=== PATIENT | female | born 2005 | race Caucasian/White ===

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

== ENCOUNTER 2024-03-19 15:46 | Emergency (ER) | payer SELFPAY ==
[2024-03-19 15:48] VITALS: BP 165/94; PULSE 83; RESP 15; TEMP 36.4; O2SAT 98
[2024-03-19 15:56] VITALS: BP 165/94; PULSE 83; RESP 15; TEMP 36.4; O2SAT 98
--- NOTE | 2024-03-19 16:30 | DI.RAD_ITS ---
Exam(s) XR CHEST 2V PA LATERAL EXAM: XR CHEST 2V PA LATERAL CLINICAL HISTORY: Cough TECHNIQUE: 2D digital imaging was performed of the chest. Two images were obtained. PA and lateral views were obtained. COMPARISON: No exams were available for comparison FINDINGS: MEDIASTINUM: Normal. HEART: Normal. PULMONARY VASCULATURE: Normal. LUNGS: Clear. PLEURAL SPACE: No pleural effusion or pneumothorax. BONE:Within normal limits for the patient's age. OTHER FINDINGS:Normal. IMPRESSION: No acute pulmonary findings. DATA REPOSITORY: RADIATION DOSE DELIVERED:
--- NOTE | 2024-03-19 16:33 | W.ED.GENAD ---
Discharge Plan Disposition Patient Disposition: Home Condition: Stable Discharge Details Clinical Impression: Upper respiratory infection, viral Primary Care Provider: Cesar Amin ED Provider: Lexus Mckeon Home Meds and New Rx's Prescriptions: New benzonatate 100 mg capsule 100 mg PO TID PRN (Reason: cough) Qty: 9 0RF Rx Instructions: Take 1 capsule up to 3 times daily as needed for cough No Action bisacodyl 5 mg tablet,delayed release (DR/EC) 5 mg PO DAILY PRN (Reason: constipation) Qty: 90 3RF cyproheptadine 4 mg tablet See Rx Instructions .ROUTE .COMPLEX Qty: 90 0RF Dose Instruction: TAKE 1 TABLET BY MOUTH 2 TO 3 TIMES DAILY NEEDED FOR ALLERGY SYMPTOMS Rx Instructions: TAKE 1 TABLET BY MOUTH 2 TO 3 TIMES DAILY NEEDED FOR ALLERGY SYMPTOMS docusate sodium [Colace] 100 mg capsule 200 mg PO DAILY Qty: 60 0RF ondansetron HCl 4 mg tablet See Rx Instructions .ROUTE .COMPLEX Qty: 90 3RF Dose Instruction: TAKE 1 TABLET BY MOUTH EVERY 8 HOURS NEEDED FOR NAUSEA OR VOMITING Rx Instructions: TAKE 1 TABLET BY MOUTH EVERY 8 HOURS NEEDED FOR NAUSEA OR VOMITING lamotrigine 25 mg tablet 50 mg PO BID Qty: 360 3RF Rx Instructions: Rx'd by [facility] [place] Psychiatry 06/21/21 - JACKY mometasone 0.1 % cream 1 applic topical BID PRN (Reason: skin irritation) Qty: 45 1RF Rx Instructions: Apply thin layer to itchy, inflamed areas BID as needed Kyleena 17.5 mcg/24 hrs (5 yrs) 19.5 mg intrauterine device 1 device intrauterine ONCE Rx Instructions: as a single dose cholecalciferol (vitamin D3) 25 mcg (1,000 unit) capsule 25 mcg PO DAILY naproxen 500 mg tablet 500 mg PO BID PRN (Reason: pain) Qty: 60 0RF doxycycline hyclate 100 mg tablet 100 mg PO BID Qty: 120 0RF Discharge Instructions Instructions: Viral Upper Respiratory Infection, Adult (DC) Additional Instructions: No evidence of pneumonia on the x-ray. I do suspect viral URI. Negative for COVID flu RSV. Please take the Tessalon Perles as directed for cough. You may also take [id number] cough suppressant. Also try honey and Vicks VapoRub. Using albuterol inhaler 1 or 2 puffs every 4-6 hours as needed for shortness of breath. This will help to open up your airways. Follow up with primary care provider in 3-5 days. Return to ED sooner if any worsening or concerns. Please take Tylenol or Ibuprofen with food every 4-6 hours as needed for pain and swelling. Referrals: Cesar Amin DO [Primary Care Provider] - 5 days Discharge Data Discharge Date/Time-TO BE ENTERED AT DEPARTURE: 03/19/24 17:59 HPI General Mode of arrival: ambulatory. Date/Time Provider Initiated Documentation: 03/19/24 15:49. Limitations to Documentation: no limitations. Information obtained by: patient, RN notes reviewed and old records reviewed. HPI Narrative: 19-year-old female presents to the ER with chief complaint of stuffy nose and cough she has been ongoing for the last 3 days. She reports that she was at work and coughed so hard she thought she was in a pass out. She denies any history of asthma however that is listed on her past medical history. She does have a history of obesity, GERD ADHD and mood disorder. She reports that she has not been taking any medications at home for this. Related Data Home Medications ?Medication ?Instructions ?Recorded ?Confirmed levonorgestrel 17.5 mcg/24 hr (up 1 device intrauterine ONCE 03/22/20 03/19/24 to 5 yrs) 19.5mg intrauterine device (Kyleena) mometasone 0.1 % topical cream 1 applic topical BID PRN skin 06/04/20 03/19/24 irritation #45 grams bisacodyl 5 mg tablet,delayed 5 mg PO DAILY PRN constipation #90 09/05/22 03/19/24 release tabs cyproheptadine 4 mg tablet See Rx Instructions .Route 09/05/22 03/19/24 .COMPLEX #90 tabs docusate sodium 100 mg capsule 200 mg (2 x 100 mg) PO DAILY #60 09/05/22 03/19/24 (Colace) caps ondansetron HCl 4 mg tablet See Rx Instructions .Route 09/05/22 03/19/24 .COMPLEX #90 tabs cholecalciferol (vitamin D3) 25 25 mcg PO DAILY 11/14/22 03/19/24 mcg (1,000 unit) capsule naproxen 500 mg tablet 500 mg PO BID PRN pain #60 tabs 11/14/22 03/19/24 lamotrigine 25 mg tablet 50 mg (2 x 25 mg) PO BID #360 tabs 03/19/23 03/19/24 doxycycline hyclate 100 mg tablet 100 mg PO BID #120 tabs 05/21/23 03/19/24 benzonatate 100 mg capsule 100 mg PO TID PRN cough #9 caps 03/19/24 Previous Rx's ?Medication ?Instructions ?Recorded mometasone 0.1 % topical cream 1 applic topical BID PRN skin 06/04/20 irritation #45 grams bisacodyl 5 mg tablet,delayed 5 mg PO DAILY PRN constipation #90 09/05/22 release tabs cyproheptadine 4 mg tablet See Rx Instructions .Route 09/05/22 .COMPLEX #90 tabs docusate sodium 100 mg capsule 200 mg (2 x 100 mg) PO DAILY #60 09/05/22 (Colace) caps ondansetron HCl 4 mg tablet See Rx Instructions .Route 09/05/22 .COMPLEX #90 tabs naproxen 500 mg tablet 500 mg PO BID PRN pain #60 tabs 11/14/22 lamotrigine 25 mg tablet 50 mg (2 x 25 mg) PO BID #360 tabs 03/19/23 doxycycline hyclate 100 mg tablet 100 mg PO BID #120 tabs 05/21/23 benzonatate 100 mg capsule 100 mg PO TID PRN cough #9 caps 03/19/24 Allergies Allergy/AdvReac Type Severity Reaction Status Date / Time Sulfa (Sulfonamide Allergy Rash, Verified 03/19/24 15:57 Antibiotics) Erythema General Stated Complaint: RespSymp DENTON: 3 Review of Systems All systems reviewed & are unremarkable except as noted in HPI and below Cardiovascular Cardiovascular: Reports dyspnea Respiratory Respiratory: Reports cough and Reports dyspnea Exam Narrative Exam Narrative: Constitutional: Alert and oriented x3. Appears stated age. Normal body habitus. Head: Normocephalic, no trauma. Eyes: Pupils PERRL, Red reflex noted, EOM's intact. Eyelids symmetrical without lesions, discharge, or swelling. ENT: Bilateral TM's WNL, External ear normal to inspection, no mastoid TTP, swelling, or erythema, Nasal turbinates WNL, no nasal discharge. Normal dentition, Posterior pharynx WNL, no exudate. Chest: RRR, Normal S1, S2, distal pulses intact. Resp: Lungs clear to auscultation bilaterally, no wheezes, rales, or rhonchi. Abdomen: Soft, non-distended, Normoactive bowel sounds all 4 quads. Musculoskeletal: Normal gait, Moves all 4 extremities without difficulty. Skin: No suspicious rashes or lesions. Capillary refill less than 2 sec. Neurologic: Cranial nerves II-XII intact. Alert and oriented x 3. Motor: No deficits noted. Sensory: Intact bilaterally all 4 extremities. Hematologic/Lymphatic: No ecchymosis, no lymphadenopathy. Course Vital Signs Vital signs: Vital Signs Temperature 36.4 C L 03/19/24 15:48 Pulse 83 03/19/24 15:48 Respiratory Rate 15 03/19/24 15:48 Blood Pressure 165/94 H 03/19/24 15:48 Pulse Oximetry 98 03/19/24 15:48 Temperature 36.4 C L 03/19/24 15:56 Pulse 83 03/19/24 15:56 Respiratory Rate 15 03/19/24 15:56 Respiratory Effort Normal 03/19/24 15:56 Blood Pressure 165/94 H 03/19/24 15:56 Blood Pressure Position Sitting 03/19/24 15:56 Pulse Oximetry 98 03/19/24 15:56 Oxygen Delivery Method Room Air 03/19/24 15:56 Oxygen Flow Rate 0 03/19/24 15:48 Medical Decision Making 19-year-old female presents to the ER with chief complaint of stuffy nose and cough she has been ongoing for the last 3 days. She reports that she was at work and coughed so hard she thought she was in a pass out. She denies any history of asthma however that is listed on her past medical history. She does have a history of obesity, GERD ADHD and mood disorder. She reports that she has not been taking any medications at home for this. Chest x-ray and Fluvid swab ordered. Differential diagnose includes not limited to viral illness, bronchitis, pneumonia, common cold Negative COVID flu RSV, chest x-ray within normal limits. Will give albuterol inhaler to go and Tessalon Perles. Patient discharged in hemodynamically stable condition. This text was generated using Fitlyation system, please disregard any oddities of phrase or misspellings. Lab Data Lab results reviewed: Yes I reviewed the patient's lab results. 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) IUD surveillance (Acute) Kyleena placed 01/2020 Smoking (Acute) Sleep related leg cramps (Acute) Insomnia, unspecified (Chronic) First noted in 2019 @ [facility] [place] Establishing care with new doctor, encounter for (Acute) Rash (Acute) Borderline personality disorder (Acute) Cannabinoid hyperemesis syndrome (Acute) Kidney stone (Chronic) Obstructive sleep apnea (Chronic) + sleep study - without O2 de -sat Initial Dx @ [facility] [place] in 2019 Acanthosis nigricans (Acute) Hyperhidrosis (Acute) Mood disorder (Chronic 01/26/17) has tried Depakote (didn't work well/35#gained) Mirtrazapine Lamictal - didn't work began Lamotragine 09-05-15 eval by [facility] Psych (Dr Galindo) Gastroesophageal reflux disease (Chronic 01/26/17) Enuresis (Chronic 01/26/17) and NOC. enuresis. Seen by urology. 07/2018. Plan: - Refer to sleep medicine. Concern for possible MAGUI which can affect noc. enuresis. - Clean out for constipation. Then daily miralax - Bladder retraining - Minimize nighttime wetting (fluid restriction at night, double voiding before bedtime) -Follow up in 1 month Attention deficit hyperactivity disorder (ADHD), combined type (Chronic 01/26/17) Medical History Asthma Obesity GERD (gastroesophageal reflux disease) ADHD Mood disorder Enuresis Surgical History History of dental surgery All 4 wisdom teeth extracted 2018. Family History Mother Schizophrenia Diabetes Depression Anxiety Father Diabetes Bipolar 1 disorder Diverticulitis of colon Depression Maternal Grandmother Anxiety Social History Smoking/Tobacco Use Status: Current every day Tobacco Type: e-cigarettes Tobacco: How many years used: 3 Quit status: not considering quitting Smoking risk assessment performed?: Yes Alcohol Intake: never Drug use: Daily Substance use type: marijuana Adopted: No Caregiver/Support person: No Foster care: Yes Household members: family Housing: apartment Number of Children: 0 number of grandchildren: 0 Communication Needs: Corrective Lenses Education Level: high school Details: [employer] Do you need help understanding health information?: Rarely current occupation: Unemployed Pets and animals: Yes (1 cat) Pets and animals: cat(s) Sexually active: Yes Do you think of yourself as: bisexual Current gender identity: female What is your relationship status?: never How often do you talk on the phone with friends or family?: three or more times per week How often do you get together with friends or relatives?: once per week Do you belong to any clubs or organized social groups?: no Panel score (0-1 are the most socially isolated patients): 1 What type of physical activity do you participate in: walking Duration: 30-45 minutes/day Frequency: 3-4 times per week Isha/Zoroastrian: Restorationist Seatbelt use: always Helmet use: Yes Helmet use: always Drive intox or ride w/intox 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
[2024-03-19 17:28] LABS: COVID-19 PCR Negative (Negative); Influenza A PCR Negative (Negative); Influenza B PCR Negative (Negative); RSV PCR Negative (Negative); Source NASOPHARYNX
[2024-03-19] MEDS: Albuterol HFA 8 GM 60 PUFF INH IH (17:56)
[2024-03-19] MEDS: Inhaler, Assist Device 1 EACH MC (17:56)
[2024-03-19] MEDS: Benzonatate 100 MG CAP PO ×2 (17:56)
== END 2024-03-19 17:59 | disposition home or self-care (01) ==
PROVIDERS: Emergency Provider Registered Nurse Emergency; PCP Family Medicine
DX: J06.9 Acute upper respiratory infection, unspecified (principal); B97.89 Other viral agents as the cause of diseases classified elsewhere; F17.290 Nicotine dependence, other tobacco product, uncomplicated
CPT/HCPCS: 81025; 87637; 99284; 71046

== ENCOUNTER 2025-02-08 14:42 | Emergency (ER) | payer MEDICAID, SELFPAY ==
[2025-02-08 15:18] VITALS: BP 124/83; PULSE 71; RESP 18; TEMP 37; O2SAT 98
== END 2025-02-08 16:37 | disposition left against medical advice (07) ==
PROVIDERS: PCP Family Medicine
DX: Z53.21 Procedure and treatment not carried out due to patient leaving prior to being seen by health care provider (principal)

== ENCOUNTER 2025-02-08 20:14 | Emergency (ER) | payer SELFPAY ==
[2025-02-08 20:22] VITALS: BP 141/84; PULSE 75; RESP 18; TEMP 37.3; O2SAT 96
--- NOTE | 2025-02-08 20:45 | DI.CT_ITS ---
Exam(s) CT ABDOMEN PELVIS W EXAM: CT ABDOMEN PELVIS W CLINICAL HISTORY: Rectal bleeding TECHNIQUE: Imaging Protocol: Axial computed tomography images with coronal and sagittal reformatted images were created and reviewed. CONTRAST MATERIAL: Intravenous: Omnipaque 350 Contrast volume:100 mL Oral: No COMPARISON: CT CT ABDOMEN PELVIS W from 07/07/[address] ABDOMEN PELVIS W from 11/30/[address] ABDOMEN PELVIS W from 04/28/2021 FINDINGS: ABDOMEN: Lung Bases: No acute abnormality. Liver: Normal density. No measurable mass. Portal, Superior Mesenteric, and Splenic Veins: Unremarkable. Gallbladder and Biliary Tract: No radiodense calculus or dilation. Pancreas: Normal density, no abnormal calcifications or inflammatory process. Spleen: Normal. Adrenals: No masses seen. Kidneys: Normal size, contour and axis. No radiodense stones or obstructive uropathy. There is a tiny hypodensity at the superior pole of the right kidney. It is too small for further characterization but likely reflects a small cyst. No follow-up is recommended. Abdominal Aorta: Abdominal portion non-dilated. Bowel: No obstruction or bowel wall thickening. Appendix is unremarkable. Peritoneal Cavity: No ascites, collection or mesenteric inflammatory response. No free air. Lymph Nodes: Within normal limits. Bones: Within normal limits for the patient's age. Soft Tissues: Unremarkable. PELVIS: Bladder: Urinary bladder is incompletely distended but no gross abnormalities identified. Reproductive Organs: There is an IUD which is in good position. Lymph Nodes: Within normal limits. Bones: Within normal limits for the patient's age. IMPRESSION: 1. No acute abdominal or pelvic process. 2. The preliminary [facility] report was reviewed. RADIATION DOSE DELIVERED: 1,044.89mGy.cm Total DLP DATA REPOSITORY: All CT scans at this facility are submitted to the National Radiology Data Registry (NRDR) Dose Index Registry (DIR) with the [employer] (ACR). RADIATION OPTIMIZATION: All CT scans at this facility use at least one of these dose optimization techniques: automated exposure control; mA and/or kV adjustment per patient size (includes targeted exams where dose is matched to clinical indication); or iterative reconstruction.
[2025-02-08 21:04] LABS: Glucose Negative (Negative)
[2025-02-08 21:13] LABS: C & S Indicated? No; RBC 0-2 HPF (0-2); WBC 0-2 HPF (0-5)
[2025-02-08] MEDS: Acetaminophen 500 MG TAB 1000 MG PO (21:13)
[2025-02-08 21:15] LABS: Abs Immature Grans 0.06 10^3/uL (0.0-0.06); HCT 38.6 % (36.0-46.0); HGB 12.5 g/dL (11.2-15.7); Immature Grans % 0.4 %; MCH 28.2 pg (27.0-33.0); MCHC 32.4 % (32.0-36.0); MCV 87 fL (80-95); MPV 9.9 fL (8.0-11.0); Platelet Count 335 10^3/uL (130-400); RBC 4.44 10^6/uL (3.93-5.22); RDW 12.3 % (11.7-14.6); RDW-SD 38.9 fL; WBC 14.62 10^3/uL (4.4-10.8)
[2025-02-08] MEDS: Normal Saline Flush 10 ML SYR IVP (21:26)
[2025-02-08] MEDS: Omnipaque 350 MG/ML 100 ML BTL IJ (21:26)
[2025-02-08] MEDS: Normal Saline - Diluent 50 ML VIAL IJ (21:26)
[2025-02-08] MEDS: Ondansetron 4 MG/2 ML VIAL IVP (21:28)
[2025-02-08 21:31] LABS: ALT 27 U/L (14-59); AST 25 U/L (15-37); Albumin 3.6 g/dL (3.4-5.0); Alkaline Phosphatase 64 U/L (46-116); Anion Gap 11.2 mmol/L (3-11); BUN 11 mg/dL (7-18); Bilirubin, Total 0.3 mg/dL (0.2-1.0); CO2 27.8 mmol/L (21.0-32.0); Calcium 8.7 mg/dL (8.5-10.1); Chloride 104 mmol/L (98-107); Estimated GFR 106.77 (mL/min/1.73m2); Glucose 91 mg/dL (74-106); Lipase 39 U/L (<78); Magnesium 2.2 mg/dL (1.8-2.4); Potassium 3.7 mmol/L (3.5-5.1); Sodium 143 mmol/L (136-145); Total Protein 8.1 g/dL (6.4-8.2)
[2025-02-08 21:39] LABS: INR 1.0 (0.9-1.1); Prothrombin Time 10.2 sec (9.1-11.1)
--- NOTE | 2025-02-08 21:45 | ED.GENADUL_ITS ---
Discharge Plan Disposition Patient Disposition: Home Condition: Stable Discharge Details Clinical Impression: Rectal/anal hemorrhage, Bleeding hemorrhoid Primary Care Provider: Cesar Amin ED Provider: Alem Moncada Home Meds and New Rx's Prescriptions: No Action bisacodyl 5 mg tablet,delayed release (DR/EC) 5 mg PO DAILY PRN (Reason: constipation) Qty: 90 3RF cyproheptadine 4 mg tablet See Rx Instructions .ROUTE .COMPLEX Qty: 90 0RF Dose Instruction: TAKE 1 TABLET BY MOUTH 2 TO 3 TIMES DAILY NEEDED FOR ALLERGY SYMPTOMS Rx Instructions: TAKE 1 TABLET BY MOUTH 2 TO 3 TIMES DAILY NEEDED FOR ALLERGY SYMPTOMS docusate sodium [Colace] 100 mg capsule 200 mg PO DAILY Qty: 60 0RF ondansetron HCl 4 mg tablet See Rx Instructions .ROUTE .COMPLEX Qty: 90 3RF Dose Instruction: TAKE 1 TABLET BY MOUTH EVERY 8 HOURS NEEDED FOR NAUSEA OR VOMITING Rx Instructions: TAKE 1 TABLET BY MOUTH EVERY 8 HOURS NEEDED FOR NAUSEA OR VOMITING lamotrigine 25 mg tablet 50 mg PO BID Qty: 360 3RF Rx Instructions: Rx'd by [facility] Psychiatry 06/21/21 - JN mometasone 0.1 % cream 1 applic topical BID PRN (Reason: skin irritation) Qty: 45 1RF Rx Instructions: Apply thin layer to itchy, inflamed areas BID as needed Kyleena 17.5 mcg/24 hrs (5 yrs) 19.5 mg intrauterine device 1 device intrauterine ONCE Rx Instructions: as a single dose cholecalciferol (vitamin D3) 25 mcg (1,000 unit) capsule 25 mcg PO DAILY naproxen 500 mg tablet 500 mg PO BID PRN (Reason: pain) Qty: 60 0RF doxycycline hyclate 100 mg tablet 100 mg PO BID Qty: 120 0RF benzonatate 100 mg capsule 100 mg PO TID PRN (Reason: cough) Qty: 9 0RF Rx Instructions: Take 1 capsule up to 3 times daily as needed for cough Discharge Instructions Instructions: Bloody Stools, Adult ED Additional Instructions: You were seen in the emergency department today for evaluation of blood in your stool. In our department you had a full physical examination performed, had laboratory studies that were reassuring, though your white blood cell count was slightly elevated. I noticed that it has not been elevated in the past as well. You had no concerning findings on your CT scan today, and the blood on your st ool is possibly coming from your hemorrhoids. I recommend that you contact your primary care provider to schedule a follow-up visit, and I have provided a referral to our general surgery team to discuss your hemorrhoids, possible colonoscopy/imaging and any ongoing management. Please follow-up with your primary care provider in the next few days to discuss this visit and any symptoms that change, worsen, or persist. Thank you for allowing us to be part of your care. Stand Alone Forms: Work Release HPI General Mode of arrival: ambulatory . Date/Time Provider Initiated Documentation: 02/08/25 20:15 . Limitations to Documentation: no limitations . Information obtained by: patient and old records reviewed . HPI Narrative: This is a 20-year-old female patient with a past medical history significant for MAGUI, hemorrhoids, GERD, and a recent replacement of her IUD last Sunday, presenting for evaluation of blood on her stool. She reports that she has had rectal bleeding in the past secondary to hemorrhoids, states that today she had 2 bowel movements that had a larger amount of blood that seem to go throughout the stool as well as on the surface. She did not have pain with passage of stool, does states that she strains quite frequently. No diarrhea, no abdominal discomfort other than some cramping overlying her suprapubic region that has been present since her IUD replacement. She has not had dysuria or hematuria, denies vomiting but did have some nausea today. She reports that she has had difficulty securing insurance, and this is made following up with outpatient providers difficult. She did not try any medications prior to arrival at our facility. Related Data Home Medications ?Medication ?Instructions ?Recorded ?Confirmed levonorgestrel 17.5 mcg/24 hr (up 1 device intrauterin e ONCE 03/22/20 02/08/25 to 5 yrs) 19.5mg intrauterine device (Kyleena) mometasone 0.1 % topical cream 1 applic topical BID SD N skin 06/04/20 02/08/25 irritation #45 grams bisacodyl 5 mg tablet,delayed 5 mg PO DAILY PRN consti pation #90 09/05/22 02/08/25 release tabs cyproheptadine 4 mg tablet See Rx Instructions .Route 09/05/22 02/08/25 .COMPLEX #90 tabs docusate sodium 100 mg capsule 200 mg (2 x 100 mg) PO DAILY #60 09/05/22 02/08/25 (Colace) caps ondansetron HCl 4 mg tablet See Rx Instructions .Route 09/05/22 03/19/24 .COMPLEX #90 tabs cholecalciferol (vitamin D3) 25 25 mcg PO DAILY 02/08/25 mcg (1,000 unit) capsule naproxen 500 mg tablet 500 mg PO BID PRN pain #60 t abs 11/14/22 03/19/24 lamotrigine 25 mg tablet 50 mg (2 x 25 mg) PO BID #36 0 tabs 03/19/23 02/08/25 doxycycline hyclate 100 mg tablet 100 mg PO BID #120 t abs 05/21/23 02/08/25 benzonatate 100 mg capsule 100 mg PO TID PRN cough #9 caps 03/19/24 02/08/25 Previous Rx's ?Medication ?Instructions ?Recorded mometasone 0.1 % topical cream 1 applic topical BID SD N skin 06/04/20 irritation #45 grams bisacodyl 5 mg tablet,delayed 5 mg PO DAILY PRN consti pation #90 09/05/22 release tabs cyproheptadine 4 mg tablet See Rx Instructions .Route 09/05/22 .COMPLEX #90 tabs docusate sodium 100 mg capsule 200 mg (2 x 100 mg) PO DAILY #60 09/05/22 (Colace) caps ondansetron HCl 4 mg tablet See Rx Instructions .Route 09/05/22 .COMPLEX #90 tabs naproxen 500 mg tablet 500 mg PO BID PRN pain #60 t abs 11/14/22 lamotrigine 25 mg tablet 50 mg (2 x 25 mg) PO BID #36 0 tabs 03/19/23 doxycycline hyclate 100 mg tablet 100 mg PO BID #120 t abs 05/21/23 benzonatate 100 mg capsule 100 mg PO TID PRN cough #9 caps 03/19/24 Allergies Allergy/AdvReac Type Severity Reaction Status Date / Time Sulfa (Sulfonamide Allergy Rash, Verified 02/08/25 20:29 Antibiotics) Erythema General Stated Complaint: DESKTOP ADMINISTRATOR DENTON: 4 Exam Narrative Exam Narrative: Gen: Awake and alert, in no apparent distress HEENT: Non-icteric sclera Neck: Supple Lungs: No apparent respiratory distress, normal respiratory effort. CV: Appears well perfused, strong distal pulses Abdomen: Non-distended, soft, tenderness to palpation over the suprapubic region without rigidity, rebound, or guarding Rectal: Rectal examination supervised by FAHAD Marino, revealing a nonthrombosed, small hemorrhoid externally, no blood is appreciated on the glove after CONTRERAS that the patient did not tolerate this exam in its entirety. I did not palpate any large internal hemorrhoids within the limits of this exam. MSK: Moves 4 extremities without apparent limitation in ROM Skin: Visualized skin without rashes, cyanosis. Neuro: Normal Gait, no obvious focal deficits or facial asymmetry. Speaks in f ull, clear sentences. Psych: Appropriate for situation. Course Vital Signs Vital signs: Vital Signs Temperature 37.3 C 02/08/25 20:22 Pulse 75 02/08/25 20:22 Respiratory Rate 18 02/08/25 20:22 Blood Pressure 141/84 H 02/08/25 20:22 Pulse Oximetry 96 02/08/25 20:22 Temperature 37.3 C 02/08/25 20:22 Temperature Source Oral 02/08/25 20:22 Pulse 75 02/08/25 20:22 Respiratory Rate 18 02/08/25 20:22 Blood Pressure 141/84 H 02/08/25 20:22 Blood Pressure Position Sitting 02/08/25 20:22 Pulse Oximetry 96 02/08/25 20:22 Pain Level 6 02/08/25 20:42 Lab/Test Results Lab/Test Results: Laboratory Tests Range/Units 02/08/25 02/08/25 20:39 21:10 WBC (4.4-10.8) 10^3/uL 14.62 H RBC (3.93-5.22) 10^6/uL 4.44 Hgb (11.2-15.7) g/dL 12.5 Hct (36.0-46.0) % 38.6 MCV (80-95) fL 87 MCH (27.0-33.0) pg 28.2 MCHC (32.0-36.0) % 32.4 RDW (11.7-14.6) % 12.3 Plt Count (130-400) 10^3/uL 335 MPV (8.0-11.0) fL 9.9 Immature Gran % % 0.4 Neutrophils % % 64.9 Lymphocytes % % 28.7 Monocytes % % 5.1 Eosinophils % % 0.6 Basophils % % 0.3 Nucleated RBC % (0.0-0.3) % 0.0 Absolute Neutrophils (1.2-6.7) 10^3/uL 9.49 H Absolute Lymphocytes (1.2-3.4) 10^3/uL 4.20 H Absolute Monocytes (0.1-0.8) 10^3/uL 0.75 Absolute Eosinophils (0.0-0.7) 10^3/uL 0.09 Absolute Basophils (0.0-0.2) 10^3/uL 0.04 Sodium (136-145) mmol/L 143 Potassium (3.5-5.1) mmol/L 3.7 Chloride (98-107) mmol/L 104 Carbon Dioxide (21.0-32.0) mmol/L 27.8 Anion Gap (3-11) mmol/L 11.2 H BUN (7-18) mg/dL 11 Creatinine (0.55-1.02) mg/dL 0.8 Est GFR (CKD-EPI 2020) (mL/min/1.73m2) 106.77 Glucose (74-106) mg/dL 91 Calcium (8.5-10.1) mg/dL 8.7 Magnesium (1.8-2.4) mg/dL 2.2 Total Bilirubin (0.2-1.0) mg/dL 0.3 AST (15-37) U/L 25 ALT (14-59) U/L 27 Alkaline Phosphatase (46-116) U/L 64 Total Protein (6.4-8.2) g/dL 8.1 Albumin (3.4-5.0) g/dL 3.6 Lipase (<78) U/L 39 Urine Color (Yellow) Yellow Urine Clarity (Clear) Clear Urine pH (5-8) 7.0 Ur Specific Burton (1.005-1.025) 1.025 Urine Protein (Neg-Trace) mg/dL Negative Urine Ketones (Negative) mg/dL Negative Urine Blood (Negative) Moderate H Urine Nitrite (Negative) Negative Urine Bilirubin (Negative) Negative Urine Urobilinogen (Up to 0.2) mg/dL 0.2 Ur Leukocyte Esterase (Negative) Negative Urine RBC (0-2) HPF 0-2 Urine WBC (0-5) HPF 0-2 Ur Epithelial Cells (Negative) HPF Rare Urine Crystals (Negative) HPF Negative Urine Bacteria (Negative) HPF Few Urine Casts (Negative) LPF Negative Urine Mucus (Negative) Negative Ur Culture Indicated? No Urine Glucose (Negative) mg/dL Negative Medical Decision Making This is a 20-year-old female patient presenting for evaluation of blood in her stool. Differential includes but is not limited to hemorrhoidal bleeding, certainly considered perirectal abscess though I do not palpate any fluctuance and the patient is reassuringly without fever or chills. Considered other lower GI bleeding pathologies including AVM, diverticular bleed, as well as coagulopathy. Given the patient's history of nonspecific GI issues in childhood, I did consider the possibility for IBS/IBD. The patient has no epigastric discomfort, melena, or other concerning symptoms to increase my concern for upper GI bleed. I suspect that her suprapubic cramping is due to her recent IUD placement, though certainly I considered early , ovarian pathology including cyst, UTI. No vaginal symptoms to suggest PID/TOA. I will provide the patient with a dose of Tylenol and Zofran for her symptoms, and obtain labs to include CBC, CMP, magnesium, urinalysis, and lipase. We will obtain a CT to evaluate for evidence of causes of GI bleeding including perianal abscess, colitis, etc. - I independently interpreted the laboratory studies, which show a slight samir kocytosis to 14.6, but no anemia, or thrombocytopenia. The chemistry panel is without evidence of electrolyte abnormality, kidney dysfunction, or liver injury. INR is 1.0, lipase is low, and urinalysis has a moderate amount of blood in it but no infectious findings. CT scan reviewed by myself, showing no acute abnormalities to explain the patient's symptoms. Specifically, there is no evidence of perianal abscess or soft tissue changes, no bowel thickening to suggest colitis, and her IUD is appropriately placed. She has no renal stones. I shared the findings with the patient and provided a general surgery referral to discuss her hemorrhoids and possible colonoscopy/sigmoidoscopy. At this time, the patient has had a full medical evaluation and is safe for discharge to home. They are hemodynamically stable, ambulatory, and tolerating PO. They are understanding of the follow-up plan and return precautions. They left our facility without incident. 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) IUD surveillance (Acute) Kyleena placed 01/2020 Smoking (Acute) Sleep related leg cramps (Acute) Insomnia, unspecified (Chronic) First noted in 2019 @ [facility] Establishing care with new doctor, encounter for (Acute) Rash (Acute) Borderline personality disorder (Acute) Cannabinoid hyperemesis syndrome (Acute) Kidney stone (Chronic) Obstructive sleep apnea (Chronic) + sleep study - without O2 de -sat Initial Dx @ [facility] in 2018 Acanthosis nigricans (Acute) Hyperhidrosis (Acute) Mood disorder (Chronic 01/26/17) has tried Depakote (didn't work well/35#gained) Mirtrazapine Lamictal - didn't work began Lamotragine 09-05-15 eval by Child Psych (Dr Galindo) Gastroesophageal reflux disease (Chronic 01/26/17) Enuresis (Chronic 01/26/17) and NOC. enuresis. Seen by urology. 07/2018. Plan: - Refer to sleep medicine. Concern for possible MAGUI which can affect noc. enuresis. - Clean out for constipation. Then daily miralax - Bladder retraining - Minimize nighttime wetting (fluid restriction at night, double voiding before bedtime) -Follow up in 1 month Attention deficit hyperactivity disorder (ADHD), combined type (Chronic 01/26/17) Medical History Asthma Obesity GERD (gastroesophageal reflux disease) ADHD Mood disorder Enuresis Surgical History History of dental surgery All 4 wisdom teeth extracted 2018. Family History Mother Schizophrenia Diabetes Depression Anxiety Father Diabetes Bipolar 1 disorder Diverticulitis of colon Depression Maternal Grandmother Anxiety Social History Smoking/Tobacco Use Status: Current every day Tobacco Type: e-cigarettes Tobacco: How many years used: 3 Quit status: not considering quitting Smoking risk assessment performed?: Yes Alcohol Intake: current Alcohol Intake frequency: holidays/special occasions only Alcohol type: beer and hard liquor Drug use: Daily Substance use type: marijuana Adopted: No Caregiver/Support person: No Foster care: Yes Household members: family Housing: apartment Number of Children: 0 number of grandchildren: 0 Communication Needs: Corrective Lenses Education Level: high school Details: [employer] Do you need help understanding health information?: Rarely current occupation: Unemployed Pets and animals: Yes (1 cat) Pets and animals: cat(s) Sexually active: Yes Do you think of yourself as: bisexual Current gender identity: female What is your relationship status?: never How often do you talk on the phone with friends or family?: three or more times per week How often do you get together with friends or relatives?: once per week Do you belong to any clubs or organized social groups?: no Panel score (0-1 are the most socially isolated patients): 1 What type of physical activity do you participate in: walking Duration: 30-45 minutes/day Frequency: 3-4 times per week Isha/Religious: Taoist Seatbelt use: always Helmet use: Yes Helmet use: always Drive intox or ride w/intox pick up driver: No Do you feel safe at home: Yes Do you feel safe in your relationship?: Yes Female Reproductive History Menstrual Age of Menarche: 10 control method: implanted (Nexplanon implanted by Alice Moy [id number] EXP=12/17/2020) PAWSS Have you Been Recently Intoxicated or Drunk Within the Last 30 days?: No Have you Ever Experienced Previous Episodes of Alcohol Withdrawal?: No Have you ever Experienced Withdrawal Seizures?: No Have you ever Experienced Delirium Tremens(DT)s?: No Have you ever undergone Alcohol Rehabilitation Treatment (i.e, inpt ot outpatient treatment programs)?: No Have you ever Experienced Blackouts?: No Have you ever Combined Alcohol with other Downers within the last 90 days?: No Have you ever Combined Alcohol with any other Substance of Abuse during the last 90 days?: No Positive Blood Alcohol level on Presentation? [PCS.BAL]: No Evidence of Increased Autonomic Activity (i.e. HR>120, tremor, sweating, agitation, nausea)?: No Result: 0
--- NOTE | 2025-02-08 22:03 | DI.VRAD_ITS ---
PROCEDURE INFORMATION: Exam: CT Abdomen And Pelvis With Contrast Exam date and time: 02/08/2025 9:22 PM Age: 20 years old Clinical indication: Other: Rectal bleeding TECHNIQUE: Imaging protocol: Computed tomography of the abdomen and pelvis with contrast. Radiation optimization: All CT scans at this facility use at least one of these dose optimization techniques: automated exposure control; mA and/or kV adjustment per patient size (includes targeted exams where dose is matched to clinical indication); or iterative reconstruction. Contrast material: OMNIPAQUE 350; Contrast volume: 100 ml; Contrast route: INTRAVENOUS (IV); COMPARISON: CT ABDOMEN PELVIS W 04/28/2021 7:22 PM FINDINGS: Liver: Normal. No mass. Gallbladder and biliary ducts: Normal. No calcified stones. No ductal dilation. Pancreas: Normal. No ductal dilation. Spleen: Normal. No splenomegaly. Adrenal glands: Normal. No mass. Kidneys and ureters: Normal. No hydronephrosis. Stomach and bowel: Unremarkable. No obstruction. No mucosal thickening. Appendix: The appendix is well seen, within normal limits. Intraperitoneal space: Unremarkable. No free air. No significant fluid collection. Vasculature: Unremarkable. No abdominal aortic aneurysm. Lymph nodes: Unremarkable. No enlarged lymph nodes. Urinary bladder: The bladder is not well distended. Reproductive: IUD in place. Bones/joints: Unremarkable. No acute fracture. Soft tissues: Unremarkable. IMPRESSION: No acute abnormality seen to account for symptoms. Dictated and Authenticated by: Leanna Pinon MD. Orderin St. Jonathan Ferrara MD
[2025-02-08] MEDS: Ketorolac 15 MG/ML VIAL IVP (22:22)
[2025-02-08 22:28] VITALS: BP 136/82; PULSE 72; RESP 18; O2SAT 96
== END 2025-02-08 22:29 | disposition home or self-care (01) ==
PROVIDERS: Emergency Provider Emergency Medicine; PCP Family Medicine
DX: K62.5 Hemorrhage of anus and rectum (principal)
CPT/HCPCS: 99284; 99285; 36415; 96374; 80053; 83690; 74177; 81003; 81015; 83735; 85025; 85610; J1885; J2405; J3490